=== PATIENT | female | born 1965 | race Caucasian/White ===

== ENCOUNTER 2018-08-18 20:20 | Observation (INO) | payer SELFPAY ==
[2018-08-18] MEDS ORDERED: Promethazine HCl 25 MG/ML VIAL ONE (21:03)
[2018-08-18 21:26] LABS: #Eosinphils 0.1 thou/uL (0.0-0.7); #Lymphocytes 1.8 thou/uL (1.20-3.40); #Monocytes 0.7 thou/uL (0.11-0.59); #Neutrophils 3.2 thou/uL (1.40-6.50); %Basophils 0.6 % (0.0-1.0); %Eosinophils 2.2 % (0.0-10.0); %Lymphocytes 30.7 % (21.0-51.0); %Monocytes 12.6 % (0.0-10.0); Hemoglobin 9.8 g/dL (12.0-16.0); MDiff Complete? YES; Macrocytosis SLIGHT = 6-15 cells (100X) (0-5/hpf); Mean Corpuscular HGB CONC 32.9 g/dL (32.0-36.0); Mean Corpuscular Hemoglobin 36.7 pg (27.0-31.0); Mean Platelet Volume 7.8 fL (7.4-10.4); Platelet Count 129 thou/uL (130-400); Polychromasia SLIGHT = 2-3 cells (100X) (0-2/hpf); RBC Distribution Width 16.1 % (11.5-14.5); Red Blood Cell (RBC) Count 2.68 mill/uL (4.20-5.40); White Blood Cell (WBC) Count 5.9 thou/uL (4.8-10.8)
[2018-08-18 21:29] LABS: ALT (SGPT) 46 U/L (8-55); AST (SGOT) 44 U/L (5-34); Albumin 3.8 g/dL (3.5-5.0); Alkaline Phosphatase 94 U/L (40-150); Anion Gap 12 mmol/L (10-20); BUN (Urea Nitrogen) 21 mg/dL (7.0-18.7); Bilirubin, Total 0.7 mg/dL (0.2-1.2); CK (CPK) 42 U/L (29-168); Calc. Creatinine Clearance 0 mL/min (70-130); Calcium 9.1 mg/dL (7.8-10.44); Carbon Dioxide 22 mmol/L (22-29); Chloride 107 mmol/L (98-107); Estimated GFR-MDRD 73; Globulin 3.4 g/dL (2.4-3.5); Glucose 93 mg/dL (70-105); Potassium 4.4 mmol/L (3.5-5.1); Protein, Total 7.2 g/dL (6.0-8.3); Sodium 137 mmol/L (136-145)
[2018-08-18 21:34] LABS: CKMB 0.9 ng/mL (0-6.6); Troponin I Less than 0.010 ng/mL (< 0.028)
--- NOTE | 2018-08-18 22:00 | RAD ---
PORTABLE AP CHEST X-RAY 08/18/18 HISTORY: Chest pain. COMPARISON: 08/18/18 obtained from [facility]. FINDINGS: Postsurgical change related to median sternotomy are again noted. The cardiac silhouette and pulmonar y vasculature are within normal limits. The lungs remain clear. There has been no interval change fro m prior study. IMPRESSION: No acute cardiopulmonary process. POS: ANDREA
[2018-08-19 00:20] VITALS: BMI 54.3
[2018-08-19] MEDS ORDERED: Ondansetron ODT 4 MG TAB PO PRN (00:27)
[2018-08-19] MEDS ORDERED: Acetaminophen 325 MG TAB PO PRN (00:27)
[2018-08-19] MEDS ORDERED: Ondansetron PF 4 MG/2 ML Vial IVP PRN (00:27)
[2018-08-19] MEDS ORDERED: Guaifenesin DM 100-10/5 ML UDCUP PO PRN (00:27)
[2018-08-19] MEDS ORDERED: Zolpidem Tartrate 5 MG TAB PO PRN (00:27)
[2018-08-19] MEDS ORDERED: Bisacodyl 10 MG SUPP PR PRN (00:27)
[2018-08-19] MEDS ORDERED: Bisacodyl 5 MG TAB PO PRN (00:27)
[2018-08-19] MEDS ORDERED: Loperamide HCl 2 MG CAP PO PRN (00:27)
[2018-08-19] MEDS ORDERED: Calcium Carbonate 500 MG ChewTAB PO PRN (00:27)
--- NOTE | 2018-08-19 01:21 | HP ---
DATE OF ADMISSION: 08/18/2018 PRIMARY CARE PHYSICIAN: [facility] call admission. The patient is from [place], [place]. She is following her PCP in [place], [place] and her engineer remote control diesel i s in [place], [place]. REASON FOR ADMISSION: Transfer from [facility] for chest pain, rule out acute coronary syndrome. HISTORY OF PRESENT ILLNESS: A 52-year-old female who has multiple medical problems. She has coronar y artery disease. She reports that she has CABG done. She has two stents in her chilk[place] coronary as well as one stent in bypass. She also claims that she had history of DVT after long driving required 6 months of anticoagulation therapy as well as history of PE required another 4-6 months of anticoag ulation therapy, but she is not on any chronic anticoagulation therapy. She is following Cardiology in [place], [place]. She was initially evaluated at [facility] for chest pain. She milad cribes chest pain is substernal, radiating to left arm and back associated with shortness of breath, nausea and fatigue. The patient reports that she is allergic to NITROGLYCERIN and she was not taking any medication including aspirin for her anemia. At [facility], the patient had electrocardiogram which showed normal sinus rhythm, n onspecific ST-T changes. Her chest x-ray was unremarkable. She was treated with morphine 4 mg, Zofr an 4 mg, and aspirin, and subsequently she was transferred to our emergency room for rule out acute c oronary syndrome. When I saw this patient in the emergency room, she was chest pain free. She was stable, stable vital s and monitor was showing sinus rhythm. The patient is being admitted for rule out acute coronary sy ndrome. She denies any pleurisy. She denies any cough. She denies any upper respiratory or lower r espiratory symptoms. She denies any epigastric pain. She denies any constipation, diarrhea, melena or hematochezia. She denies any palpitation, dizziness or syncope. She denies any orthopnea, PND or leg swelling. REVIEW OF SYSTEMS: The following complete review of systems was negative, unless otherwise mentioned in the HPI or below: Constitutional: Weight loss or gain, ability to conduct usual activities. Ski n: Rash, itching. Eyes: Double vision, pain. ENT/Mouth: Nose bleeding, neck stiffness, pain, tend erness. Cardiovascular: Palpitations, dyspnea on exertion, orthopnea. Respiratory: Shortness of b reath, wheezing, cough, hemoptysis, fever or night sweats. Gastrointestinal: Poor appetite, abdomin al pain, heartburn, nausea, vomiting, constipation, or diarrhea. Genitourinary: Urgency, frequency, dysuria, nocturia. Musculoskeletal: Pain, swelling. Neurologic/Psychiatric: Anxiety, depression. Allergy/Immunologic: Skin rash, bleeding tendency. Please see my HPI for pertinent positive and n egative. All other review of systems reviewed and negative except as mentioned in the HPI. ALLERGIES: TORADOL and NITROGLYCERINS. CURRENT HOME MEDICATIONS: Iron 325 mg p.o. daily, levothyroxine 100 mcg p.o. daily, lisinopril 10 mg p.o. daily, Toprol 75 mg p.o. daily, Zocor 20 mg p.o. at bedtime, Xanax 0.5 mg 2 tablets at bedtime, allopurinol 300 mg p.o. daily, Plavix 75 mg p.o. daily. PAST MEDICAL HISTORY: 1. Gout. 2. Hepatitis C, which she recently diagnosed and she is approved for hepatitis C treatment next week . 3. History of OR, coronary artery disease, required CABG. 4. Hypothyroidism. 5. Morbid obesity. 6. Hypertension. 7. Dyslipidemia. PAST PSYCHIATRIC HISTORY: Anxiety and depression. PAST SURGICAL HISTORY: History of uterine cancer required surgery, appendicectomy, CABG, cardiac cat heterization with stent, , cholecystectomy, surgical debridement required for spider bite re lated abscess. SOCIAL HISTORY: The patient denies any tobacco, alcohol or illicit drug abuse. FAMILY HISTORY: No family history of premature coronary artery disease, stroke or cancer. EMERGENCY ROOM COURSE: At the [facility], the patient was given morphine 4 mg x2, Z ofran 4 mg, aspirin 324 mg. In our emergency room, the patient is given Phenergan 12.5 mg and morphi ne 2 mg. PHYSICAL EXAMINATION: VITAL SIGNS: On arrival, blood pressure 137/83, pulse 67, respiratory rate 16, temperature 98.4, sat uration 98% on room air, weight 140 kilograms. GENERAL: The patient is currently alert, awake, no obvious acute distress. HEENT: Head: Normocephalic, atraumatic. Eyes: Pupils round, reactive to light. Extraocular muscl e intact. ENT: Oropharynx within normal limits. Moist mucous membranes, no oral lesion, no pharyng eal erythema, no exudate. NECK: Short neck. Difficult to assess JVD, no thyromegaly, no carotid bruit. LUNGS: Clear to auscultation, though air entry reduced at base. No wheeze, no rhonchi, no accessory muscles of respiration in use. CARDIAC: S1, S2 appears regular. No murmur, no gallop, no rub, though morbid obesity limiting exami nation. ABDOMEN: Soft, bowel sounds present, nontender, nondistended. No organomegaly, no mass, no suprapub ic tenderness. No epigastric tenderness, no Freedman sign. Obesity present. BACK: Unremarkable, no CVA tenderness. EXTREMITIES: Upper extremities: Passive movement of all joints are normal. Lower extremities: No edema. Good distal pulsation, no calf tenderness. SKIN: No skin rash. HEMATOLOGICAL SYSTEM: No lymphadenopathy. PSYCHIATRIC: Normal affect. SIGNIFICANT LABORATORY DATA: EKG showing normal sinus rhythm within normal limits. Chest x-ray done at [facility] showing no acute cardiopulmonary process. CBC: WBC 6.3, hemoglobin 9.6, MCV 112.6, platelet 125. BMP: Sodium 140, potassium 5.2, chloride 109, carbon dioxide 20, BUN 21, creatinine 0.83, glucose 97, calcium 8.9. LFTs: AST 59, ALT 50, alkaline phosphatase is 98, alb umin 3.9. BNP 85.3. Cardiac enzymes negative x2. ASSESSMENT AND PLAN/IMPRESSION: 1. Chest pain. The patient's chest pain description is atypical. She already has known history of coronary artery disease. She is on Plavix. She has a CABG as well as stenting in the past. At this point, the patient current EKG is normal. Her description is atypical. Her cardiac enzymes are neg ative. The patient will be observed on telemetry floor. We will do serial cardiac enzymes x3. The patient is allergic to NITROGLYCERIN. At this point, we will continue with aspirin 325 mg p.o. daily . We will resume patient's home medication. The patient will need nuclear medicine exercise Cardiol ite stress test for prognostic reason. We will check lipid profile for risk stratification. We will control her pain symptomatically. 2. Macrocytic anemia. We will continue with folic acid and vitamin B12 therapy. Most likely this m acrocytic anemia related with her history of chronic hepatitis C and possible hypersplenism. At this point, further investigation will defer as an outpatient basis. 3. Hypothyroidism. We will continue Synthroid 100 mcg p.o. daily. 4. Hypertension. The patient will continue lisinopril 10 mg p.o. daily. The patient had mild hyper kalemia, but repeat testing showed normal. We will hold metoprolol because we are planning to do str ess test tomorrow. 5. Gout. We will continue allopurinol 300 mg p.o. daily. 6. Morbid obesity. Dietary education given, weight loss education given. Healthy lifestyle measure s discussed with the patient. 7. Dyslipidemia. Check lipid profile tomorrow and continue Zocor 20 mg p.o. at bedtime. 8. Chronic hepatitis C. The patient is planned for hepatitis C treatment after discharge next week. 9. Anxiety and depression. Continue Xanax 1 mg p.o. at bedtime. 10. Coronary artery disease with history of coronary artery bypass graft and stenting as mentioned i n problem #1 we are doing stress test. We will continue her home medications. 11. Deep venous thrombosis prophylaxis not needed because we are expecting in discharge in 24 hours. 12. Gastrointestinal prophylaxis, Pepcid 20 mg p.o. b.i.d. 13. Code status. The patient is FULL CODE. The patient does not have any surrogate decision maker. Disposition plan based on clinical course, based on stress test result. If stress is negative, then we will consider discharging her home. This patient is advised to follow up with Cardiology at [place], [place] upon discharge.
[2018-08-19] MEDS: HYDROcodone/Acetaminophen 5/325 mg Tablet PO PRN (01:22)
[2018-08-19 02:28] LABS: Troponin I Less than 0.010 ng/mL (< 0.028)
[2018-08-19] MEDS: Promethazine HCl 25 MG/ML VIAL IM/IV PRN (03:14)
[2018-08-19] MEDS: Levothyroxine Sodium 125 MCG TAB PO SCH (03:26)
[2018-08-19 04:47] LABS: Cardiac Risk 3.4 (Less than 4.5)
[2018-08-19] MEDS ORDERED: Regadenoson 0.4 MG/5 ML SYRINGE ONE (10:39)
[2018-08-19] MEDS: Promethazine HCl 25 MG, Admixture Fee 1 EACH in Sodium Chloride 0.9% 50 ML IVPB PRN (11:27)
--- NOTE | 2018-08-19 12:37 | PDOC.PN ---
- Subjective Encounter Start Date: 08/19/18 Encounter Start Time: 08:30 -: f/u on admission for chest pain/pressure which -: radiates to her left arm - Objective Resuscitation Status: Resuscitation Status FULL:Full Resuscitation Vital Signs & Weight: Vital Signs (12 hours) Temp Pulse Resp BP Pulse Ox 08/19/18 08:00 97.6 F 72 18 106/59 L 95 08/19/18 03:08 98.1 F 74 16 121/69 95 Weight Weight 143.517 kg I&O: 08/18/18 08/19/18 08/20/18 06:59 06:59 06:59 Intake Total 200 Output Total 500 Balance -300 Result Diagrams: 08/18/18 21:01 08/18/18 21:01 Phys Exam - Physical Examination Constitutional: NAD HEENT: PERRLA Neck: no nodes, no JVD, full ROM Respiratory: no rales, no rhonchi, clear to auscultation bilateral Cardiovascular: RRR, no rub, gallop Gastrointestinal: soft, non-tender, positive bowel sounds Musculoskeletal: no edema, pulses present, edema present Neurological: non-focal, normal sensation, moves all 4 limbs Lymphatic: no nodes Psychiatric: normal affect, A&O x 3 Skin: no rash, cap refill <2 seconds Dx/Plan (1) Chest pain Code(s): R07.9 - CHEST PAIN, UNSPECIFIED Status: Acute (2) Hypertension Code(s): I10 - ESSENTIAL (PRIMARY) HYPERTENSION Status: Chronic (3) Hyperlipidemia Code(s): E78.5 - HYPERLIPIDEMIA, UNSPECIFIED Status: Chronic (4) Coronary artery disease Code(s): I25.10 - ATHSCL HEART DISEASE OF [place] CORONARY ARTERY W/O ANG PCTRS Status: Chronic (5) Hypothyroidism Code(s): E03.9 - HYPOTHYROIDISM, UNSPECIFIED Status: Chronic (6) Hepatitis C Code(s): B19.20 - UNSPECIFIED VIRAL HEPATITIS C WITHOUT HEPATIC COMA Status: Chronic (7) Anxiety Code(s): F41.9 - ANXIETY DISORDER, UNSPECIFIED Status: Chronic - Plan -: 2 day stress test, should have resting one tomorrow -: Monitor labs, Vital signs -: Continue home meds -: Anticipate dc home tomorrow * .
[2018-08-19] MEDS: Aspirin 325 MG TAB PO SCH (13:21)
[2018-08-19] MEDS: Famotidine 20 MG TAB PO SCH ×2 (13:21→20:53)
[2018-08-19] MEDS: Ferrous Sulfate 325 MG TAB PO SCH (13:21)
[2018-08-19] MEDS: Lisinopril 10 MG TAB PO SCH ×2 (13:22→20:53)
[2018-08-19] MEDS: Cyanocobalamin (Vitamin B-12) 1,000 MCG TAB PO SCH (13:22)
[2018-08-19] MEDS: Allopurinol 300 MG TAB PO SCH (13:22)
[2018-08-19] MEDS: Ascorbic Acid 500 mg Chewable Tablet PO SCH (13:22)
[2018-08-19] MEDS: Clopidogrel Bisulfate 75 MG TAB PO SCH (13:22)
[2018-08-19] MEDS: Folic Acid 1 MG TAB PO SCH (13:22)
[2018-08-19] MEDS: Simvastatin 20 MG TAB PO SCH (20:54)
[2018-08-19] MEDS ORDERED: ALPRAZolam 1 MG TAB PO SCH (22:00)
[2018-08-20] MEDS: Promethazine HCl 25 MG, Admixture Fee 1 EACH in Sodium Chloride 0.9% 50 ML IVPB PRN ×4 (00:39→19:58)
[2018-08-20] MEDS: Levothyroxine Sodium 125 MCG TAB PO SCH (05:13)
[2018-08-20] MEDS: Morphine 2 MG/ML SYRINGE SLOW IVP PRN ×4 (05:53→19:57)
[2018-08-20] MEDS: Ascorbic Acid 500 mg Chewable Tablet PO SCH (08:53)
[2018-08-20] MEDS: Famotidine 20 MG TAB PO SCH ×2 (08:54→19:59)
[2018-08-20] MEDS: Lisinopril 10 MG TAB PO SCH ×2 (08:54→19:59)
[2018-08-20] MEDS: Clopidogrel Bisulfate 75 MG TAB PO SCH (08:54)
[2018-08-20] MEDS: Aspirin 325 MG TAB PO SCH (08:55)
[2018-08-20] MEDS: Cyanocobalamin (Vitamin B-12) 1,000 MCG TAB PO SCH (08:55)
[2018-08-20] MEDS: Folic Acid 1 MG TAB PO SCH (08:55)
[2018-08-20] MEDS: Ferrous Sulfate 325 MG TAB PO SCH (08:55)
[2018-08-20] MEDS: Allopurinol 300 MG TAB PO SCH (08:55)
[2018-08-20 12:56] LABS: ALT (SGPT) 51 U/L (8-55); AST (SGOT) 54 U/L (5-34); Albumin 3.7 g/dL (3.5-5.0); Alkaline Phosphatase 94 U/L (40-150); Anion Gap 12 mmol/L (10-20); BUN (Urea Nitrogen) 15 mg/dL (7.0-18.7); Bilirubin, Total 0.6 mg/dL (0.2-1.2); Calc. Creatinine Clearance 182 mL/min (70-130); Calcium 8.8 mg/dL (7.8-10.44); Carbon Dioxide 24 mmol/L (22-29); Chloride 107 mmol/L (98-107); Estimated GFR-MDRD 73; Globulin 3.3 g/dL (2.4-3.5); Glucose 180 mg/dL (70-105); Potassium 4.5 mmol/L (3.5-5.1); Sodium 138 mmol/L (136-145)
[2018-08-20 13:15] LABS: Anisocytosis SLIGHT = 6-15 cells (100X) (0-5/hpf); Band 1 % (5-11); Eosinophils 1 % (0-10); Hemoglobin 9.5 g/dL (12.0-16.0); Lymphocytes 23 % (21-51); MDiff Complete? YES; Macrocytosis SLIGHT = 6-15 cells (100X) (0-5/hpf); Mean Corpuscular HGB CONC 33.8 g/dL (32.0-36.0); Mean Corpuscular Hemoglobin 37.4 pg (27.0-31.0); Monocytes 6 % (0-10); Neutrophil 69 % (42-75); PLT Morphology Comment Appears Decreased; Platelet Count 107 thou/uL (130-400); RBC Distribution Width 16.3 % (11.5-14.5); Red Blood Cell (RBC) Count 2.54 mill/uL (4.20-5.40); White Blood Cell (WBC) Count 4.1 thou/uL (4.8-10.8)
--- NOTE | 2018-08-20 13:57 | NM ---
CARDIAC SPECT WITH EF AND WALL MOTION: History: 52-year-old female with history of chest pain, coronary artery disease, history of [place]. Status post st ent. This is a Lexiscan Sestamibi study. Patient was injected with 32.0 mCi Technetium 99M Sestamibi intravenously for stress images and 29.0 mCi Technetium 99M Sestamibi intravenously for resting images. FINDINGS: Multiple SPECT images in the short axis, vertical long axis, and horizontal long axis demonstrates no scan evidence for overt infarct or ischemia. TID: 1.3 LHR: 0.30 EDV: 70 mL Ejection fraction: 60% MYOCARDIAL PERFUSION WALL MOTION: There is some slight dyskinesis at the level of the cardiac apex which potentially could be technical . Otherwise, contractility is normal. IMPRESSION: No overt scan evidence for infarct or ischemia. TID 1.3, slight dyskinesis at the level of the apex. This could conceivably be technical. POS: RADHA
[2018-08-20] MEDS ORDERED: Communication Order-Pharmacy FS SCH (16:00)
--- NOTE | 2018-08-20 16:34 | CON ---
DATE OF CONSULTATION: 08/20/2018 REASON FOR CONSULTATION: Chest pain. HISTORY OF PRESENT ILLNESS: Ms. Ramsay is a very pleasant 54-year-old white female who [facility]. She has significant history of coronary artery disease. She had three-vesse l bypass in 2010. Eventually, she had to have a heart catheterization that showed one of her bypass was given her problem. This was stented and also had a left main stent. She tells me that the pain that she had today that made her come in. She said it is the exact same pain she had when she needed stents. She actually had this pain again in 2014 and she had a repeat heart catheterization by a ca rdiologist was in [place] and she was found to have patent stents and bypasses and was told that her pr oblem was probably what we call small vessel disease. She was started on ranolazine and she could no t afford this, so she took it for about a month and a half to 2 months, which she tells me it helped her symptoms, but she stopped taking it since. This was 3 years ago. She states that she has been h aving on and off chest pain since then, but this time around made her come to the hospital. It was m uch more severe than before. She tells me that when she needed a stent in the past, she had a normal stress that she had normal cardiac enzymes just like this time around, so she continues to be severe ly short-winded and with chest pain just by getting up and going to the bathroom right now. PAST MEDICAL HISTORY: 1. Coronary artery disease as above. 2. Gout. 3. Hepatitis C. 4. Hypothyroidism. 5. Morbid obesity. 6. Hypertension. 7. Hyperlipidemia. PAST SURGICAL HISTORY: 1. Uterine cancer status post surgery. 2. Appendectomy. 3. CABG x3 as above. 4. Cardiac catheterization with stents above. 5. . 6. Cholecystectomy. 7. Surgical debridement for a spider bite related abscess. OUTPATIENT MEDICATIONS: 1. Iron 325 a day. 2. Levothyroxine 100 mcg a day. 3. Lisinopril 10 mg. 4. Toprol-XL 75 mg b.i.d. 5. Zocor 20 mg at bedtime. 6. Xanax p.r.n. 7. Allopurinol. 8. Plavix 75 mg a day. ALLERGIES: TORADOL and NITROGLYCERIN. SOCIAL HISTORY: No alcohol, tobacco or drugs. FAMILY HISTORY: Noncontributory. REVIEW OF SYSTEMS: A 12-point review of systems was done and is all negative unless stated in the hi story of present illness. PHYSICAL EXAMINATION: VITAL SIGNS: Temperature 98.2, pulse 103, respiration rate 20, satting 96% on room air, blood pressu re 141/67. GENERAL: Awake, alert, and oriented x3, in no distress. HEENT: Normocephalic, atraumatic. NECK: Supple. LUNGS: Lungs are clear. CARDIOVASCULAR: S1, S2, no S3, S4, no murmurs. ABDOMEN: Soft, positive bowel sounds. EXTREMITIES: No edema. SKIN: Warm and dry. LABORATORY WORK: Reviewed mildly anemic at 9.5, platelet count of 107. Chemistry with normal BUN an d creatinine. Triglycerides 234, cholesterol 132, LDL 46, HDL of 39. EKG was reviewed. Stress test was reviewed. ASSESSMENT AND PLAN: 1. Chest pain: Consistent with her history of angina. I offered medical therapy with catheterizati on and she chose catheterization. She really wants to know what is going on. She feels she may need another stent. We will go ahead and plan a heart catheterization. We spoke about the risks and avani efits of the procedures. Risks including but not limited to stroke, [place], , bleeding, need for bl ood transfusion, limb loss, organ loss. She understands and ruled understanding of this and agrees t o proceed. We will do drug-eluting stents if needed. She has been on Plavix for a long time without issues, she is in for this. 2. Further recommendation per results of coronary angiogram.
--- NOTE | 2018-08-20 17:23 | PDOC.PN ---
- Subjective Encounter Start Date: 08/20/18 Encounter Start Time: 13:00 -: f/u for chest pain, reports persistent pain today -: patient reports intermittent sharp ches pain and nausea - Objective Resuscitation Status: Resuscitation Status FULL:Full Resuscitation Vital Signs & Weight: Vital Signs (12 hours) Temp Pulse Resp BP Pulse Ox 08/20/18 15:24 98.2 F 103 H 20 141/67 H 96 08/20/18 11:38 98.0 F 95 24 H 118/61 95 08/20/18 07:47 98.8 F 102 H 20 116/56 L 96 Weight Weight 142.156 kg I&O: 08/19/18 08/20/18 08/21/18 06:59 06:59 06:59 Intake Total 200 1350 480 Output Total 500 Balance -300 1350 480 Result Diagrams: 08/20/18 11:35 08/20/18 11:35 Phys Exam - Physical Examination Constitutional: NAD HEENT: PERRLA, moist MMs Neck: no nodes, no JVD Respiratory: no rhonchi, clear to auscultation bilateral Cardiovascular: RRR, no significant murmur Gastrointestinal: soft, non-tender Musculoskeletal: no edema, pulses present Neurological: non-focal, normal sensation Lymphatic: no nodes Psychiatric: normal affect, A&O x 3 Skin: no rash, normal turgor Dx/Plan (1) Chest pain Code(s): R07.9 - CHEST PAIN, UNSPECIFIED Status: Acute (2) Hypertension Code(s): I10 - ESSENTIAL (PRIMARY) HYPERTENSION Status: Chronic (3) Hyperlipidemia Code(s): E78.5 - HYPERLIPIDEMIA, UNSPECIFIED Status: Chronic (4) Coronary artery disease Code(s): I25.10 - ATHSCL HEART DISEASE OF [place] CORONARY ARTERY W/O ANG PCTRS Status: Chronic (5) Hypothyroidism Code(s): E03.9 - HYPOTHYROIDISM, UNSPECIFIED Status: Chronic (6) Hepatitis C Code(s): B19.20 - UNSPECIFIED VIRAL HEPATITIS C WITHOUT HEPATIC COMA Status: Chronic (7) Anxiety Code(s): F41.9 - ANXIETY DISORDER, UNSPECIFIED Status: Chronic - Plan -: 2nd part of stress test done today, dyskinesis to cardiac apex, o/w NAD -: Cardiology consulted today, will do cardiac cath in am -: Will monitor labs * .
[2018-08-20] MEDS: Simvastatin 20 MG TAB PO SCH (20:00)
[2018-08-20] MEDS ORDERED: ALPRAZolam 1 MG TAB PO PRN (21:32)
[2018-08-21] MEDS: Sodium Chloride 0.9% 1,000 ML IV SCH ×2 (00:12→15:58)
[2018-08-21] MEDS: Morphine 2 MG/ML SYRINGE SLOW IVP PRN ×3 (00:13→09:18)
[2018-08-21] MEDS: Promethazine HCl 25 MG, Admixture Fee 1 EACH in Sodium Chloride 0.9% 50 ML IVPB PRN ×2 (02:18→08:33)
[2018-08-21] MEDS: Famotidine 20 MG TAB PO SCH (05:10)
[2018-08-21] MEDS: Clopidogrel Bisulfate 75 MG TAB PO SCH (05:10)
[2018-08-21] MEDS: Aspirin 325 MG TAB PO SCH (05:11)
[2018-08-21] MEDS: Levothyroxine Sodium 125 MCG TAB PO SCH (05:11)
[2018-08-21] MEDS: Lisinopril 10 MG TAB PO SCH (05:11)
[2018-08-21] MEDS: Allopurinol 300 MG TAB PO SCH (05:11)
[2018-08-21 05:28] LABS: ALT (SGPT) 47 U/L (8-55); AST (SGOT) 56 U/L (5-34); Albumin 3.5 g/dL (3.5-5.0); Alkaline Phosphatase 91 U/L (40-150); Anion Gap 15 mmol/L (10-20); BUN (Urea Nitrogen) 13 mg/dL (7.0-18.7); Bilirubin, Total 0.6 mg/dL (0.2-1.2); Calc. Creatinine Clearance 193 mL/min (70-130); Calcium 8.7 mg/dL (7.8-10.44); Carbon Dioxide 18 mmol/L (22-29); Chloride 111 mmol/L (98-107); Estimated GFR-MDRD 77; Globulin 3.3 g/dL (2.4-3.5); Glucose 120 mg/dL (70-105); Potassium 4.9 mmol/L (3.5-5.1); Protein, Total 6.8 g/dL (6.0-8.3); Sodium 139 mmol/L (136-145)
[2018-08-21 05:47] LABS: Band 1 % (5-11); Eosinophils 5 % (0-10); Hemoglobin 9.9 g/dL (12.0-16.0); Lymphocytes 29 % (21-51); MDiff Complete? YES; Macrocytosis SLIGHT = 6-15 cells (100X) (0-5/hpf); Mean Corpuscular HGB CONC 33.4 g/dL (32.0-36.0); Mean Corpuscular Hemoglobin 37.2 pg (27.0-31.0); Mean Platelet Volume 8.4 fL (7.4-10.4); Monocytes 18 % (0-10); Neutrophil 47 % (42-75); PLT Morphology Comment Appears Decreased; Platelet Count 114 thou/uL (130-400); RBC Distribution Width 16.4 % (11.5-14.5); Red Blood Cell (RBC) Count 2.67 mill/uL (4.20-5.40); White Blood Cell (WBC) Count 5.2 thou/uL (4.8-10.8)
[2018-08-21] MEDS ORDERED: Iopamidol 370 76% 100 ML VIAL ONE (08:05)
[2018-08-21] MEDS: Ascorbic Acid 500 mg Chewable Tablet PO SCH (09:10)
[2018-08-21] MEDS: Folic Acid 1 MG TAB PO SCH (09:11)
[2018-08-21] MEDS: Ferrous Sulfate 325 MG TAB PO SCH (09:11)
[2018-08-21] MEDS: Cyanocobalamin (Vitamin B-12) 1,000 MCG TAB PO SCH (09:11)
[2018-08-21] MEDS ORDERED: Loratadine 10 MG TAB PO PRN (09:50)
[2018-08-21] MEDS ORDERED: Lidocaine 1% (PF) 30 ML VIAL ONE (09:50)
[2018-08-21] MEDS ORDERED: Chloraseptic Spray 180 ml Bottle PO PRN (09:51)
[2018-08-21] MEDS ORDERED: Fentanyl 100 MCG/2 ML VIAL ONE (10:23)
[2018-08-21] MEDS ORDERED: Midazolam HCl 2 mg/2 ml Vial ONE (10:23)
[2018-08-21] MEDS ORDERED: Acetaminophen/Codeine 30-300mg Tablet PO PRN (11:31)
[2018-08-21] MEDS ORDERED: traMADol HCl 50 MG TAB PO PRN (11:31)
[2018-08-21] MEDS ORDERED: Sodium Chloride 0.9% 200 ML IV SCH (11:45)
[2018-08-21 16:01] VITALS: BP 131/74; TEMP 97.8
[2018-08-21] MEDS: HYDROcodone/Acetaminophen 5/325 mg Tablet PO PRN (16:01)
[2018-08-21] MEDS: Promethazine HCl 25 MG/ML VIAL IM/IV PRN (17:16)
[2018-08-21] MEDS ORDERED: Metoprolol Tartrate 50 MG TAB PO SCH (21:00)
--- NOTE | 2018-08-21 22:35 | PDOC.EVN ---
Event Note - Event Note Event Note: Reviewed the case. Examined patient. She is feeling well now. She did have angina, but cath only revealed old RCA occlusion and small vessel disease. Heart reg, lungs clear, abd obese, but benign. Stable angina. Dr. Lazcano recommended ranexa, but she may have some issues with cost. Sounds like she may have some already. She is comfortable with discharge plan.
--- NOTE | 2018-08-22 01:56 | DIS ---
DATE OF ADMISSION: 08/18/2018 DATE OF DISCHARGE: 08/21/2018 PRIMARY CARE PHYSICIAN: Has a PCP in [place], [place] and has a firefighting equipment specialist in [place], [place]. BLACK AND WHITE PRINTER OPERATOR: Dr. Lazcano, Cardiology. CODE STATUS: FULL. PROCEDURE: Patient had a chest x-ray, no acute pulmonary process. STRESS TEST: Lexiscan study, which showed no evidence of overt infarct or ischemia. Ejection fraction is 60%. The patient had a cardiac catheterization procedure done on 08/21/2018. Patient had a patent LAD stent, occluded ostial LCX, occluded proximal RCA, CBG to RCA was occluded, SVG to LCX was widely patent, [place] to LAD is patent with competitive flow into the [place], normal LVEDP , normal LVEF, and recommendations from the catheterization were medical therapy , add Ranexa, and discharge home later today. DISCHARGE DIAGNOSES: 1. Chest pain thought to be related to small vessel disease. Patient does have a history of coronary artery disease. 2. Macrocytic anemia. 3. Hypothyroidism. 4. Hypertension. 5. Gout. 6. Morbid obesity. 7. Dyslipidemia. 8. Chronic hepatitis C. 9. Anxiety. 10. Depression. REVIEW OF SYSTEMS: The patient was seen by me before discharge. Constitutional : Denies chills, denies fever. Eyes: Denies eye pain or vision change. ENT: Denies rhinorrhea. Reports some sore throat. Denies voice changes. Cardiovascular: Reports some chest pain in substernal, but reports it has improved. Respiratory: Denies any cough, denies any shortness of breath. Gastrointestinal: Denies any abdominal pain, denies constipation, diarrhea. Musculoskeletal: Denies any back pain. Denies any falls or injuries. Denies any pain. Skin: Denies any rash, skin changes. Neurologic: Denies any headache, mental status changes, paresthesias. PHYSICAL EXAMINATION: VITAL SIGNS: Temperature 98.3, pulse 100, respiratory rate is 24, 96% on room air, blood pressure is 121/58. CONSTITUTIONAL: The patient is afebrile, slightly elevated pulse. Blood pressure as stated above. HEAD: Normal. Atraumatic and normocephalic. EYES: Pupils are equally round and reactive to light. Extraocular muscles are intact. ENT: Pharynx exam is normal. Mucous membranes are moist. Teeth are normal. NECK: No JVD. Normal range of motion. LUNGS: Breath sounds. No respiratory distress. Clear to auscultation. CARDIOVASCULAR: Normal S1, S2. No gallop, no murmur. ABDOMEN: Female, nontender on palpation. Exam is limited by body habitus. BACK: Normal inspection, normal range of motion, no tenderness. EXTREMITIES: Upper extremity: Normal range of motion. Motor strength is normal. Sensation is intact. Radial pulses normal. Lower extremity: No edema noted. Motor strength is normal. Sensation intact. NEUROLOGICAL: Cranial nerves are intact. No focal motor deficits, no focal sensory deficits. SKIN: Warm, dry, normal in color. HOSPITAL COURSE: The patient is a 52-year-old female who was seen originally in [place] on the day of discharge. She reported significant coronary artery disease with a CABG and multiple cardiac catheterizations with stent placement. She claims that she also had a DVT after long periods of driving, which required 6 months of anticoagulation therapy. In the emergency room at [place], she was complaining of chest pain. She describes the pain as substernal, radiating to the left arm. At that time, she reports an allergy to NITROGLYCERIN that was not taking any nor given any. She had an EKG, sinus rhythm, nonspecific ST changes. A chest x-ray at that time was unremarkable. She was treated with some morphine, Zofran and then was transferred to the [facility] where she was admitted for chest pain. She had persistent chest pain despite pain medications. Stress test as described above. Dr. Lazcano was consulted and saw patient and consented the patient to do cardiac catheterization, which was performed today. No stents were placed. The patient will be placed on Ranexa and should follow up with a firefighting equipment specialist in [place]. MEDICATIONS: Patient's home medications will be continued which include allopurinol 300 mg p.o. daily, Xanax 1 mg tab, vitamin C 1000 mg p.o. daily, Plavix 75 mg p.o. daily, iron ferrous sulfate 325 mg p.o. daily, levothyroxine 125 mcg p.o. daily, lisinopril 10 mg p.o. b.i.d., metoprolol 75 mg p.o. b.i.d., simvastatin 20 mg p.o. at bedtime and a new prescription for Ranexa 500 mg p.o. daily was added today to her home medications. ALLERGIES: KETOROLAC, NITROGLYCERIN. Condition is stable. She will be discharged to home. She needs to follow up with her primary care provider and her firefighting equipment specialist in [place], [place] within the next couple of weeks. ROBE
--- NOTE | 2018-08-22 14:10 | EKG ---
Test Reason : Blood Pressure : / mmHG Vent. Rate : 066 BPM Atrial Rate : 066 BPM P-R Int : 168 ms QRS Dur : 092 ms QT Int : 428 ms P-R-T Axes : 012 016 045 degrees QTc Int : 448 ms Normal sinus rhythm Normal ECG Confirmed by ДМИТРИЙ MEDINA D.O. ([id number]), dictionary editor VY GRAYSON ([id number]) on 08/22/2018 2:10:20 PM Referred By: Confirmed By:ДМИТРИЙ MEDINA D.O.
== END 2018-08-21 19:11 | disposition home or self-care (01) ==
LOC: ERS 20:20 → 2SW 23:30
PROVIDERS: ADMIT Internal Medicine; ATTEND Internal Medicine
DX: I25.118 Atherosclerotic heart disease of native coronary artery with other forms of angina pectoris (principal); M10.9 Gout, unspecified; E03.9 Hypothyroidism, unspecified; I10 Essential (primary) hypertension; E78.5 Hyperlipidemia, unspecified; B19.20 Unspecified viral hepatitis C without hepatic coma; E66.01 Morbid (severe) obesity due to excess calories; F41.9 Anxiety disorder, unspecified; F32.9 Major depressive disorder, single episode, unspecified; D53.9 Nutritional anemia, unspecified; Z95.1 Presence of aortocoronary bypass graft; Z68.43 Body mass index [BMI] 50.0-59.9, adult
CPT/HCPCS: 36415; 71045; 76942; 78452; 80053; 80061; 84484; 85025; 93005; 93017; 93459; 93798; 96365; 96366; 96372; 96374; 96375; 96376; 99152; 99153; A9500; C1769; G0378; J1644; J2001; J2250; J2270; J2550; J2785; J3010; J7050